=== PATIENT | female | born 1970 | race Caucasian/White ===

== ENCOUNTER 2024-08-26 16:39 | Inpatient (IN) ==
[2024-08-26] MEDS: KETAMINE 10 MG/ML ML IV ONE (17:13)
[2024-08-26 17:37] LABS: Basophils # (Auto) 0.06 K/mcL (0.00-0.30); Basophils % (Auto) 0.7 % (0.0-2.0); Eosinophils # (Auto) 0.08 K/mcL (0.00-0.70); Eosinophils % (Auto) 0.9 % (0.0-7.0); Hematocrit 38.2 % (34.1-44.9); Hemoglobin 12.6 g/dL (11.2-15.7); Lymphocytes # (Auto) 3.33 K/mcL (1.50-4.80); Lymphocytes % (Auto) 38.4 % (15.5-49.0); Mean Cell Volume 89.3 fL (80.0-100.0); Mean Platelet Volume 10.7 fL (8.8-12.5); Monocytes # (Auto) 0.51 K/mcL (0.10-0.90); Monocytes % (Auto) 5.9 % (1.0-12.0); Neutrophils % (Auto) 53.8 % (38.0-78.0); Platelet Count 279 K/mcL (140-440); RBC 4.28 M/mcL (3.59-5.38); WBC 8.7 K/mcL (4.5-11.0)
[2024-08-26 17:48] LABS: ALT/SGPT 18 U/L (<40); AST/SGOT 23 U/L (<32); Albumin 4.7 gm/dL (3.2-5.2); Albumin/Globulin Ratio 1.8 (1.0-2.3); Alkaline Phosphatase 84 U/L (39-117); Bilirubin,Total 0.3 mg/dL (0.1-1.0); Blood Urea Nitrogen 10 mg/dL (6-20); Calcium 8.7 mg/dL (8.6-10.4); Carbon Dioxide 21 mmol/L (22-30); Chloride 105 mmol/L (96-108); Globulin 2.6 gm/dL (2.2-3.7); Glomerular Filtration Rate 82; Glucose 106 mg/dL (70-105); Potassium 3.5 mmol/L (3.3-5.1); Sodium 142 mmol/L (133-145)
[2024-08-26] MEDS: HYDROmorphone 0.5 MG/0.5 ML SYRINGE IV ONE ×2 (18:04→19:50)
[2024-08-26 18:09] LABS: INR 0.9 (0.9-1.1); Prothrombin Time 13.2 sec (11.9-14.5)
[2024-08-26] MEDS: fentaNYL 100 MCG/2 ML VIAL ONE (18:27)
[2024-08-26] MEDS: fentaNYL 100 MCG/2 ML VIAL IV ONE (18:27)
[2024-08-26] MEDS: ONDANSETRON 4 MG/2 ML VIAL IV ONE (19:21)
[2024-08-26] MEDS ORDERED: LORazepam 2 MG/ML VIAL IV PRN (19:43)
[2024-08-26] MEDS ORDERED: TEMAZEPAM 15 MG CAPSULE PO PRN (19:45)
[2024-08-26] MEDS: DIPH,PERTUSS(ACELL),TET VAC/PF 0.5 ML SYRINGE IM ONE (20:05)
[2024-08-26] MEDS: HYDROmorphone 1 MG/ML SYRINGE IV PRN (20:30)
[2024-08-26] MEDS: 0.9 % SODIUM CHLORIDE 1,000 ML IV SCH (21:09)
[2024-08-27] MEDS ORDERED: SCOPOLAMINE 1 PATCH PATCH TOPICAL PRN (06:36)
[2024-08-27] MEDS: ONDANSETRON 4 MG/2 ML VIAL IV PRN ×2 (13:12→18:07)
[2024-08-27] MEDS ORDERED: TRANEXAMIC ACID 1,000 MG/10 ML VIAL ONE (14:35)
[2024-08-27] MEDS ORDERED: GLYCOPYRROLATE 0.2 MG/ML VIAL IV ONE (14:35)
[2024-08-27] MEDS ORDERED: fentaNYL 100 MCG/2 ML VIAL ONE (14:35)
[2024-08-27] MEDS ORDERED: DEXAMETHASONE 10 MG/ML VIAL ONE (14:35)
[2024-08-27] MEDS ORDERED: PROPOFOL 200 MG/20 ML VIAL IV ONE (14:35)
[2024-08-27] MEDS ORDERED: ONDANSETRON 4 MG/2 ML VIAL ONE (14:35)
[2024-08-27] MEDS ORDERED: SUGAMMADEX SODIUM 200 MG/2 ML VIAL IV ONE (14:35)
[2024-08-27] MEDS ORDERED: LIDOCAINE 2% PF 5 ML VIAL ONE (14:35)
[2024-08-27] MEDS ORDERED: ROCURONIUM 10 MG/ML ML IV ONE (14:35)
[2024-08-27] MEDS ORDERED: KETAMINE 50 MG/ML ML ONE (14:36)
[2024-08-27] MEDS: ceFAZolin 2 GM in DEXTROSE 5% IN WATER 50 ML IV SCH (15:30)
[2024-08-27] MEDS ORDERED: PHENYLephrine 1 MG/10 ML SYRINGE (ANEST) ONE (15:43)
[2024-08-27] MEDS ORDERED: MAGNESIUM SULFATE 2 GM/50 ML BAG IV ONE (16:02)
[2024-08-27] MEDS ORDERED: HYDROmorphone 0.5 MG/0.5 ML SYRINGE ONE (16:15)
[2024-08-27] MEDS ORDERED: IPRATROPIUM/ALBUTEROL 3 ML AMPUL.NEB NEB PRN (16:18)
[2024-08-27] MEDS ORDERED: fentaNYL 100 MCG/2 ML VIAL IV PRN (16:18)
[2024-08-27] MEDS ORDERED: CETIRIZINE 10 MG TABLET PO PRN (17:46)
[2024-08-27] MEDS: METHOCARBAMOL 1,000 MG/10 ML VIAL IV PRN (17:46)
[2024-08-27] MEDS ORDERED: CYCLOBENZAPRINE 10 MG TABLET PO PRN (17:58)
[2024-08-27] MEDS ORDERED: SEMAGLUTIDE subcut SCH (18:00)
[2024-08-27] MEDS ORDERED: B12 subcut SCH (18:00)
[2024-08-27] MEDS ORDERED: TRIAMCINOLONE ACETONIDE 40 MG/ML VIAL IM SCH (18:00)
[2024-08-27] MEDS: SUMAtriptan SUCCINATE 6 MG/0.5 ML VIAL SQ ONE (18:05)
[2024-08-27] MEDS: HYDROmorphone 0.5 MG/0.5 ML SYRINGE IV ONE (18:12)
[2024-08-27] MEDS: HYDROmorphone 0.5 MG/0.5 ML SYRINGE ONE (19:01)
[2024-08-27] MEDS: LACTATED RINGERS 1,000 ML IV SCH (19:01)
[2024-08-27] MEDS: oxyCODONE/APAP 5/325MG TABLET PO PRN (20:15)
[2024-08-27] MEDS: IMIPRAMINE 25 MG TABLET PO SCH (20:16)
[2024-08-27] MEDS: TOPIRAMATE 25 MG TABLET PO SCH (20:16)
[2024-08-27] MEDS: 0.9 % SODIUM CHLORIDE 10 ML SYRINGE IV SCH (20:17)
[2024-08-28] MEDS: HYDROcodone/APAP 5/325MG TABLET PO PRN (03:22)
[2024-08-28] MEDS: MODAFINIL 200 MG TABLET PO SCH (09:23)
[2024-08-28] MEDS: PANTOPRAZOLE 40 MG TABLET PO SCH (09:23)
[2024-08-28] MEDS: ATOGEPANT PO SCH (09:23)
[2024-08-28] MEDS: Linaclotide [Linzess] 145 mcg capsule PO SCH (09:23)
[2024-08-28 13:09] VITALS: TEMP 98.4
[2024-08-28 15:08] VITALS: O2SAT 97
== END 2024-08-28 15:30 | disposition home or self-care (01) | DRG 482 ==
LOC: ED 16:39 → MEDSUR 20:14
PROVIDERS: ADMIT Orthopaedic Surgery; ATTEND Orthopaedic Surgery